=== PATIENT | female | born 1955 | race Caucasian/White ===

== ENCOUNTER 2023-12-25 17:35 | Emergency (ER) | payer MEDICARE, BC ==
[~2023-12-25] VITALS: Ht 167.6 cm; Wt 86.9 kg
--- OUTSIDE RECORDS SUMMARY | 2023-12-25 17:36 | XMS ---
PreManage Notification: DALIA ROBLES Security Virtual Office Assistant Events No recent Security Events currently on file CRITERIA MET - PDMP CARE PROVIDERS RASHEED MERLOS Internal Medicine Current PHONE: [phone] [place] has no Care Guidelines for this patient. [facility]12 MO.) [facility]: Visits indicate total known visits. ED/UCC VISIT TRACKING (12 MO.) 12/25/2023 17:35 [facility] TYPE: Emergency COMPLAINT: - RT KNEE PAIN 05/12/2023 15:17 [facility] TYPE: Emergency COMPLAINT: - object stuck in ear DIAGNOSES: - Foreign body in right ear, initial encounter INPATIENT VISIT TRACKING (12 MO.) No inpatient visits to display in this time frame [id number]
[2023-12-25] MEDS ORDERED: LORAZEPAM1 MG PO (19:21)
[2023-12-25] MEDS ORDERED: LEVOTHYROXINE112 MCG PO (19:22)
[2023-12-25] MEDS ORDERED: VENTOLIN HFA18 GM INH (19:22)
[2023-12-25] MEDS ORDERED: LATANOPROST2.5 ML (19:23)
[2023-12-25] MEDS ORDERED: DILTIAZEM 24HR120 MG PO (19:23)
[2023-12-25] MEDS ORDERED: IBUPROFEN 800 MG TAB PO ONE (20:30)
[2023-12-25 20:51] VITALS: BP 164/81
== END 2023-12-25 20:51 | disposition home or self-care (01) ==
LOC: ED 17:35
DX: S83.91XA Sprain of unspecified site of right knee, initial encounter (principal); X58.XXXA Exposure to other specified factors, initial encounter; M16.11 Unilateral primary osteoarthritis, right hip; I10 Essential (primary) hypertension; J45.909 Unspecified asthma, uncomplicated; R73.03 Prediabetes; Z79.890 Hormone replacement therapy; Z79.899 Other long term (current) drug therapy
CPT/HCPCS: 73502; 73560; A9270

== ENCOUNTER 2024-08-13 05:49 | Inpatient (IN) | payer MEDICARE, BC ==
[2024-08-13] VITALS (7 sets, daily range): BP systolic 122–146; BP diastolic 59–67
[~2024-08-13] VITALS: Ht 167.6 cm; Wt 80.8 kg
[~2024-08-13 05:49] MED LIST: DILTIAZEM 24HR120 MG PO; LATANOPROST2.5 ML OU; LEVOTHYROXINE112 MCG PO; LORAZEPAM1 MG PO; VENTOLIN HFA18 GM INH
[2024-08-13] MEDS ORDERED: ALBUTEROL/IPRATROPIUM 3 ML NEB ONE (05:54)
[2024-08-13] MEDS ORDERED: CEFTRIAXONE SODIUM 2 GM in SODIUM CHLORIDE 0.9% 100 ML IV ONE (06:15)
[2024-08-13] MEDS ORDERED: ALBUTEROL/IPRATROPIUM 3 ML NEB INH ONE (06:15)
[2024-08-13] MEDS ORDERED: CEFTRIAXONE SODIUM 2 GM VIAL ONE (06:16)
[2024-08-13 06:20] LABS: BASOPHILS 0.3 % (0-2); EOSINOPHILS 0.3 % (0-6); HEMATOCRIT 41.4 % (35.0-50.0); HEMOGLOBIN 14.5 g/dL (12.0-18.0); LYMPHOCYTES 17.1 % (24-44); MCH 32.2 (27-36); MCV 91.9 fl (81-99); MONOCYTES 5.1 % (0-12); NEUTROPHILS 77.2 % (39-80); PLATELET COUNT 152 K/uL (140-440); RDW 12.4 (10.5-15.0)
[2024-08-13] MEDS ORDERED: ACETAMINOPHEN 500 MG TAB PO ONE (06:30)
[2024-08-13 06:31] LABS: INR 0.98 (0.80-1.30); PROTIME 12.8 Sec (11.2-14.2)
[2024-08-13 06:33] LABS: PARTIAL THROMBOPLASTIN TIME 25.8 Sec (22.9-41.3)
[2024-08-13 06:36] LABS: ALBUMIN 3.7 g/dL (3.4-5.0); ALBUMIN/GLOBULIN RATIO 1.03 (1.1-2.4); ANION GAP 12.4 (7-21); BILIRUBIN, TOTAL 0.7 mg/dL (0.2-1.0); BUN/CREATININE RATIO 18.6 (6.0-28.6); CALCIUM 8.7 mg/dL (8.5-10.1); CREATININE, SERUM 0.86 mg/dL (0.55-1.02); POTASSIUM 3.4 mmol/L (3.5-5.1); PROTEIN, TOTAL 7.3 g/dL (6.4-8.2)
[2024-08-13 06:39] LABS: LACTIC ACID, BLOOD 1.1 mmol/L (0.4-2.0)
[2024-08-13] MEDS ORDERED: ACETAMINOPHEN 325 MG TAB PO PRN ×2 (07:30→11:15)
[2024-08-13] MEDS ORDERED: ondansetron HCL 4 MG/2 ML VIAL IV PRN ×2 (07:30→11:15)
[2024-08-13] MEDS ORDERED: AZITHROMYCIN 500 MG in DEXTROSE 5% 250 ML IV ONE (07:30)
[2024-08-13 08:26] LABS: BILIRUBIN, URINE NEGATIVE (negative); BLOOD/HGB, URINE TRACE-I (Negative); KETONE, URINE TRACE (Negative); LEUK ESTERASE, URINE NEGATIVE (negative); NITRITE, URINE POSITIVE (negative)
[2024-08-13 08:30] LABS: BACTERIA, URINE 2+ /hpf (negative); CASTS, URINE NONE SEEN \\lpf; COLLECTION TYPE, URINE CLEAN CATCH; CRYSTALS, URINE NONE SEEN (0-1+); EPITHELIAL CELLS, URINE SQUAMOUS 2+ /lpf (0-1+); REFLEX CULTURE, URINE No (No)
--- NOTE | 2024-08-13 10:20 | NUR ---
PT ARRIVES TO FLOOR VIA STRETCHER TRANSPORTED BY THIS RN. PT ABLE TO WALK TO BED TO TRANSFER, SP02 STABLE ON 2L - TITRATED DOWN FROM 4L FROM ED. ADMISSION ASSESSMENTS STARTED - SEE CHART.
[2024-08-13] MEDS ORDERED: ALBUTEROL SULFATE 0.083% 3 ML VIAL INH PRN (10:30)
[2024-08-13] MEDS ORDERED: POTASSIUM CHLORIDE 10 MEQ TABCR PO ONE (11:15)
[2024-08-13] MEDS ORDERED: LACTATED RINGER'S 1,000 ML IV ONE (11:15)
[2024-08-13] MEDS ORDERED: LORazepam 1 MG TAB PO PRN (11:15)
[2024-08-13] MEDS ORDERED: PHARMACY RENAL DOSE ADJUSTMENT 1 DOSE MISC PO SCH (12:00)
--- NOTE | 2024-08-13 12:08 | NUR ---
ADMIT ASSESSMENT COMPLETE - PT EXPIRATORY WHEEZE THROUGHOUT WITH FREQUENT DRY COUGH. PRN NEB TX REQUESTED FROM RT. PT REPORTS LOOSE STOOL AT HOME YESTERDAY, NONE NOTED SINCE ARIVAL. VOIDING IN BATHROOM WITHOUT DIFFICULTY-NEEDING 2L 02 WHILE AMBULATING TO MAINTAIN SPO2. IV BOLUS STARTED PER EMAR. PTS VITALS STABLE ON MONITOR. AT BEDSIDE, ALL QUESTIONS ANSWERED.
--- NOTE | 2024-08-13 13:05 | NUR ---
PT NOTED TO HAVE FEVER 102.6 - TYLENOL ADMINISTERED. NASAL SWAB OBTAINED AND SENT TO LAB. LR BOLUS COMPLETE, IV SL. 02 AT 2L VIA NC. WORK OF BREATHING IMPROVED AFTER NEB TX. PT HOPING TO GET REST AT THIS TIME. CALL LIGHT AND TABLE IN REACH.
[2024-08-13] MEDS ORDERED: PREDNISONE20 MG PO (13:15)
[2024-08-13 13:39] LABS: CORONAVIRUS COVID-19 AG NEGATIVE (NEGATIVE); INFLUENZA A AG NEGATIVE (NEGATIVE); INFLUENZA B AG NEGATIVE (NEGATIVE)
[2024-08-13] MEDS ORDERED: ARNUITY ELLIPT50 MCG INH (13:54)
[2024-08-13] MEDS ORDERED: ESTRADIOL42.5 GM PV (13:55)
[2024-08-13] MEDS ORDERED: ALBUTEROL/IPRATROPIUM 3 ML NEB INH SCH ×2 (14:00→20:00)
[2024-08-13] MEDS ORDERED: methylPREDNISolone SOD SUCC 40 MG/ML VIAL IV SCH (14:00)
--- NOTE | 2024-08-13 14:05 | NUR ---
INTO SEE PATIENT. PERSONAL HEALTH INFORMATION REVIEWED. PATIENT LIVES IN AN RV ON THE PROPERTY THEY ARE BUILDING. 4 STEPS TO GET INTO. PATIENT DENIES DIFFCULTY GETTNG INTO RV. PATIENT DRIVES AT BASELINE. NO DME. PATIENT STATES BILLS ARE TIGHT. LET HER KNOW ABOUT [email or web address] AND [employer]. SHE LIVES WITH HER CARMINE. HE WILL BE THE ONE TO PICK HER UP AT TIME OF DISCHARGE. NO CM NEEDS AT THIS TIME.
--- NOTE | 2024-08-13 14:51 | NUR ---
UR CLINICAL REVIEW: 2MN VERSALUS, MEETS INPT FOR INFLUENZA PNEUMONIA 2L/MIN OXYGEN TO MAINTAIN SATS >90%, CXR POSITIVE PNEUMONIA, IV FLUIDS, IV STEROIDS. MEDICARE INPT 08/13/24 @ 1106 ORDER MATCHES REG NO AUTH REQUIRED PER MEDICARE RULES PLAN TO DC HOME WITH WHEN MEDICALLY STABLE.
--- NOTE | 2024-08-13 15:05 | NUR ---
INCREASED O2 TO 3 LPM WHILE SLEEPING
[2024-08-13] MEDS ORDERED: BERBERINE500 MG PO (17:16)
[2024-08-13] MEDS ORDERED: CINNAMON500 MG PO (17:16)
--- NOTE | 2024-08-13 17:16 | NUR ---
MED REC COMPLETE
--- NOTE | 2024-08-13 17:16 | NUR ---
MED REC COMPLETE
--- NOTE | 2024-08-13 18:13 | NUR ---
REPORT RECEIVED FROM PAUL ARREDONDO. PATIENT TRANSPORTED FROM CCU TO MS ROOM 113. PATIENT IS ALERT AND ORIENTED X4. PATIENT IS ON 3L NC WHILE HERE, BUT IS ON ROOM AIR AT BASELINE. PATIENT LUNGS HAVE CRACKLES THROUGHOUT. PATIENT HAS A HARD NON-PRODUCTIVE COUGH. PATIENT O2 SATURATION AT 96% ON 3L. PATIENT IV FLUSHED WITH 10ML OF NS, DRESSING INTACT. PATIENT RATED PAIN 4/10 IN LOWER BACK DUE TO BED, PATIENT NOT REQUESTING ANYTHING FOR PAIN AT THIS TIME. PATIENT UP TO BATHROOM AT THIS WITH SUPERVISION. PATIENT EDUCATED TO CALL WHEN SHE IS BACK IN BED. PATIENT EXPRESSED UNDERSTANDING. NO FURTHER NEEDS AT THIS TIME.
--- NOTE | 2024-08-13 19:37 | NUR ---
REPORT RECEIVED FROM DAYSDEFT RN. PATIENT SITTING UPRIGHT IN BED TALKING TO SIGNIFICANT OTHER. PATIENT DENIES ANY NEEDS, CALL LIGHT IN REACH.
[2024-08-13] MEDS ORDERED: BUDESONIDE 0.5 MG/2 ML VIAL INH SCH (20:00)
--- NOTE | 2024-08-13 20:25 | NUR ---
INDUSTRIAL REHABILITATION CONSULTANT OBTAINED VITALS AND I&O. ICE WATER REFILLED. PT STATES NO FURTHER NEEDS AT THIS TIME. CALL LIGHT WITHIN REACH.
--- NOTE | 2024-08-13 20:43 | NUR ---
RT ADDED HUMIDIFICATION TO DALIA'S NC. SHE DOES NOT USE HOME OXYGEN. DALIA HAS A NEW ASTHMA MEDICATION TO START AT HOME CALLED PINKY FERREIRA. DALIA HAS A CONGESTED DRY HACKING COUGH CURRENTLY.
[2024-08-13] MEDS ORDERED: MELATONIN 3 MG TAB PO PRN (21:00)
--- NOTE | 2024-08-13 21:10 | NUR ---
PATIENT SITTING UPRIGHT IN BED, ASSESSMENT COMPLETE. DENIES ANY NEEDS, CALL LIGHT IN REACH.
[2024-08-13] MEDS ORDERED: INHALER, ASSIST DEVICES 1 EACH SPACER MISC ONE (21:45)
--- NOTE | 2024-08-13 22:20 | NUR ---
SCHEDULED MEDICATIONS ADMINISTERED, PATIENT RESTING. WOKE TO RN ENTERING ROOM, DENIES FURTHER NEEDS. REQUESTS TO CONTINUE RESTING. CALL LIGHT IN REACH.
--- NOTE | 2024-08-13 23:31 | NUR ---
IN ROOM TO ANSWER CALL LIGHT, PATIENT REQUESTING TO USE RESTROOM. AMBULATED TO RESTROOM WITH MINIAL SBA, BACK TO BED WITHOUT DIFFICULTY. PATIENT DENIES OTHER NEEDS. CALL LIGHT IN REACH.
[2024-08-14] VITALS (11 sets, daily range): BP systolic 110–121; BP diastolic 47–67
--- NOTE | 2024-08-14 01:27 | NUR ---
PATIENT ASSISTED UP TO RESTROOM WITH MINIMAL SBA, BACK TO BED WITHOUT DIFFICULTY. FRESH WATER PROVIDED. VS OBTAINED AND RECORDED. PATIENT PLANS TO REST AGAIN. DENIES OTHER NEEDS, CALL LIGHT IN REACH.
[2024-08-14 05:12] LABS: BASOPHILS 0.2 % (0-2); EOSINOPHILS 0.4 % (0-6); HEMATOCRIT 37.5 % (35.0-50.0); HEMOGLOBIN 13.2 g/dL (12.0-18.0); LYMPHOCYTES 17.1 % (24-44); MCH 32.1 (27-36); MCHC 35.1 g/dl (30-36); MCV 91.6 fl (81-99); MONOCYTES 7.7 % (0-12); NEUTROPHILS 74.6 % (39-80); PLATELET COUNT 135 K/uL (140-440); RBC 4.09 M/ul (4.3-5.7); RDW 12.5 (10.5-15.0)
[2024-08-14 05:21] LABS: BUN/CREATININE RATIO 14.49 (6.0-28.6); CALCIUM 8.6 mg/dL (8.5-10.1); CREATININE, SERUM 0.69 mg/dL (0.55-1.02)
--- NOTE | 2024-08-14 05:22 | NUR ---
MASTER CRAFTSMAN OBTAINED VITALS AND I&O. PT UP TO BAHTROOM AND BACK IN BED. PT STATES NO FURTHER NEEDS AT THIS TIME. CALL LIGHT WITHIN REACH AND RN IN ROOM.
--- NOTE | 2024-08-14 05:28 | NUR ---
ASSISTED BACK TO BED FROM BATHROOM. FRESH WATER PROVIDED, RESPIRATORY ASSESSMENT COMPLETE. PATIENT DENIES OTHER NEEDS. CALL LIGHT IN REACH.
--- NOTE | 2024-08-14 06:10 | NUR ---
SCHEDULED MEDICATION ADMINISTERED. PATIENT WOKE TO RN ENTERING ROOM, RETURNED TO SLEEP FOLLOWING MEDICATION ADMINISTRATION. RESP. EVEN AND UNLABORED. CALL LIGHT IN REACH.
--- NOTE | 2024-08-14 07:01 | NUR ---
REPORT RECEIVED FROM PAUL VILLA. PATIENT RESTING WITH EYES CLOSED. EVEN AND UNLABORED RESPIRATIONS NOTED. CALL LIGHT AND PERSONAL BELONGINGS WITHIN REACH.
--- NOTE | 2024-08-14 07:50 | NUR ---
RA TRIAL 90% WITH SOB, REPLACED O2 TO 2 LPM.
[2024-08-14] MEDS ORDERED: CEFTRIAXONE SODIUM 1 GM VIAL IV ONE (08:07)
--- NOTE | 2024-08-14 08:08 | NUR ---
RT in with patient doing a treatment. Call light and personal items within reach. No cares were requested.
--- NOTE | 2024-08-14 08:30 | NUR ---
PATIENT ASSESSMENT COMPLETED. PATIENT IS ALERT AND ORIENTED X4. PATIENT IS INDEPENDENT/ 1 PERSON ASSISST PRN FOR TUBES AND WIRES. PATIENT IS 91% ON 3L NC, LUNG SOUNDS ARE COURSE/MOIST THROUGHOUT. PATIENT IS ON CPOX. PATIENT HEART TONES ARE NORMAL. RADIAL AND PEDAL PULSES ARE STRONG BILATERALLY. NO EDEMA NOTED. PATIENT WITH NO COMPLAINTS OF PAIN AT THIS TIME. PATIENT HAS HARSH, NON PRODUCTIVE COUGH. PATIENT IS DIABETIC TYPE 2, BUT CONTROLS IT WITH DIET. PATIENT IS ON REGULAR DIET, BUT HAS NOT EATEN MUCH DUE TO LOSS OF APPETITE. CAP REFILL IS <3 SECONDS. PATIENT REPORTS NUMBNESS/TINGLING IN RIGHT LOWER EXTREMETY. BOWEL TONES ARE ACTIVE IN ALL 4 QUADRANTS. PATIENT REPORTS HAVING LAST BM YESTERDAY. IV FLUSHED WITH 10ML OF NS, DRESSING INTACT. SKIN INTACT. PATIENT WITH NO FURTHER NEEDS AT THIS TIME. CALL LIGHT AND PERSONAL BELONGINGS WITHIN REACH.
--- NOTE | 2024-08-14 08:33 | NUR ---
PATIENT MEDICATED PER EMAR. PATIENT SITTING UP IN BED EATING BREAKFAST. PATIENT DENIES ANY FURTHER NEEDS AT THIS TIME. CALL LIGHT AND PERSONAL BELONGINGS WITHIN REACH.
[2024-08-14] MEDS ORDERED: CEFTRIAXONE SODIUM 1 GM in SODIUM CHLORIDE 0.9% 100 ML IV SCH (09:00)
[2024-08-14] MEDS ORDERED: AZITHROMYCIN 250 MG TAB PO SCH (09:00)
[2024-08-14] MEDS ORDERED: LEVOTHYROXINE SODIUM 112 MCG TAB PO SCH (09:00)
[2024-08-14] MEDS ORDERED: ENOXAPARIN SODIUM 40 MG/0.4 ML SYR SUB-Q SCH (09:00)
[2024-08-14] MEDS ORDERED: dilTIAZem HCL 120 MG CAPCR PO SCH (09:00)
--- NOTE | 2024-08-14 09:33 | NUR ---
PATIENT SITTING UP IN BED TALKING ON THE PHONE. PATIENT DENIES ANY NEEDS AT THIS TIME. CALL LIGHT AND PERSONAL BELONINGS WITHIN REACH.
--- NOTE | 2024-08-14 10:34 | NUR ---
PATIENT SITTING UP IN BED EATING MCDONALDS AND DRINKING COFFEE WITH AT BEDSIDE. PATIENT REQUESTING TO USE BATHROOM. PATIENT AMBULATED TO BATHROOM AND WILL CALL IF SHE NEEDS ASSISSTANCE. PATIENT ON 2L O2 WITH SATS OF 91%. PATIENT DENIES ANY FUTHER NEEDS AT THIS TIME. CALL LIGHT AND PERSONAL BELONGINGS WITHIN REACH.
--- NOTE | 2024-08-14 11:19 | NUR ---
PATIENT RESTING IN BED WITH AT BEDSIDE. PATIENT WITH NO COMPLAINTS OF PAIN AT THIS TIME. PATIENT DENIES ANY FURTHER NEEDS AT THIS TIME. CALL LIGHT AND PERSONAL BELONGINGS WITHIN REACH.
[2024-08-14] MEDS ORDERED: ALBUTEROL/IPRATROPIUM 3 ML NEB INH SCH (12:00)
--- NOTE | 2024-08-14 12:12 | NUR ---
PATIENT RESTING IN BED WAITING FOR LUNCH. FRESH ICE WATER PROVIDED. PATIENT WITH NO COMPLAINTS OF PAIN AT THIS TIME. PATIENT DENIES ANY FURTHER NEEDS AT THIS TIME. CALL LIGHT AND PERSONAL BELONGINGS WITHIN REACH.
--- NOTE | 2024-08-14 13:08 | NUR ---
PATIENT RESTING IN BED. VITALS AND INTAKE AND OUTPUT DOCUMENTED IN CHART. PATIENT WITH NO COMPLAINTS OF PAIN AT THIS TIME. IV PUMP CLEARED. CRANBERRY JUICE PROVIDED. OXYGEN TITRATED DOWN TO 1L AT THIS TIME, PATIENT DENIES SOB AND OXYGEN SATURATION IS AT 94%. FIREBOAT OPERATOR IN ROOM SETTING PATIENT UP FOR SHOWER. CALL LIGHT AND PERSONAL BELONGINGS WITHIN REACH.
--- NOTE | 2024-08-14 14:28 | NUR ---
Patient took a shower with set up assistance. Bed linens changed, clean gown and socks provided.
--- NOTE | 2024-08-14 14:44 | NUR ---
PATIENT RESTING IN BED ON HER PHONE. AT 1425 PATIENT WAS 96% ON 1L NC. THIS RN REMOVED PATIENT OXYGEN TO ASSESS PATIENT OXYGEN LEVEL DUE TO BASELINE FOR PATIENT BEING NO OXYGEN. AT THIS TIME, PATIENT OXYGEN LEVEL AT 93% ON ROOM AIR. PATIENT DENIES FEELING SOB OR ANY PAIN. PATIENT STILL HAS PRODUCTIVE COUGH. PATIENT LUNGS ARE WITH WHEEZES THROUGHOUT. FRESH WATER PROVIDED. PATIENT DENIES ANY FURTHER NEEDS AT THIS TIME. CALL LIGHT AND PERSONAL BELONGINGS WITHIN REACH.
--- NOTE | 2024-08-14 15:05 | NUR ---
PATIENT DESATING TO 88-90 WHILE LAYING DOWN. THIS RN TURNED OXYGEN BACK TO 0.5LPM AND PATIENT OXYGEN LEVEL AT 93%. PATIENT DENIES ANY FURTHER NEEDS AT THIS TIME AND STATED SHE WILL CALL IF SHE HAS ANY SOB OR FEELING THAT SHE'S NOT GETTING ENOUGH OXYGEN. PATIENT ON CPOX AT THIS TIME. CALL LIGHT AND PERSONAL BELONGINGS WITHIN REACH.
--- NOTE | 2024-08-14 15:29 | NUR ---
PATIENT UP TO BATHROOM WITHOUT OXYGEN. PATIENT AT 87% ON ROOM AIR WITH AFTER AMBULATING TO AND FROM BATHROOM. PATIENT PLACED BACK ON 1L BY THIS RN AT THIS TIME. PATIENT BACK UP TO 91% ON 1L. LOTION AND FRESH ICE WATER PROVIDED TO PATIENT. PATIENT DENIES ANY FURTHER NEEDS AT THIS TIME. CALL LIGHT AND PERSONAL BELONGINGS WITHIN REACH.
--- NOTE | 2024-08-14 16:10 | NUR ---
RT IN WITH PATIENT AT THIS TIME
--- NOTE | 2024-08-14 17:19 | NUR ---
PATIENT UP TO BATHROOM WHEN THIS RN ENTERED ROOM. FRESH ICE WATER AND DIET CRANBERRY JUICE PROVIDED. PATIENT BACK IN BED AT THIS TIME. CPOX CONNECTED. PATIENT DENIES ANY FURTHER NEEDS. CALL LIGHT AND PERSONAL BELONGINGS WITHIN REACH.
--- NOTE | 2024-08-14 18:05 | NUR ---
PATIENT IS LYING IN BED WITH THE LIGHTS OFF AND ARE ON HER PHONE. PATIENT WITH NC IN PLACE AND THE CPOX AT BEDSIDE. PATIENT STATED NO NEEDS AT THIS TIME. CALL LIGHT AND PERSONAL BELONGINGS ARE WITHIN REACH.
--- NOTE | 2024-08-14 19:08 | NUR ---
PATIENT REPORTING SEVERE PAIN IN UPPER ABDOMINAL, CHEST, AND NECK FROM COUGHING. PATIENT ALSO REPORTING ANIETY. PRN DOSE OF ATIVAN AND TYLENOL GIVEN. PATIENT REQUESTING SOMETHING MORE FOR PAIN. DR MARTINEZ NOTIFIED. NEW ORDER FOR MOTRIN FROM . NO FURTHER ORDERS AT THIS TIME.
[2024-08-14] MEDS ORDERED: IBUPROFEN 600 MG TAB PO PRN (19:15)
--- NOTE | 2024-08-14 19:15 | NUR ---
REPORT RECEIVED FROM AKASH. PT IN ROOM, IN ROOM. NO NEEDS VOICED.
--- NOTE | 2024-08-14 20:39 | NUR ---
DALIA NEEDS A NEW NEBULIZER ORDERED UPON DISCHARGE. DALIA IS SITTING UP IN BED ON A 2L NC TALKING TO HER
[2024-08-14] MEDS ORDERED: methylPREDNISolone SOD SUCC 40 MG/ML VIAL IV SCH (21:00)
--- NOTE | 2024-08-14 22:00 | NUR ---
ASSESSMENT COMPLETED. FRESH ICE WATER GIVEN. CONTINUES ON 2LNC, CPOX IN PLACE, [id number] 90'S. COUGHING FREQUENTLY WHILE RN PRESENT. PT STATES THAT THE COUGHING HAS IMPROVED SINCE ADMISSION. DENIES PAIN AT THIS TIME. IN ROOM. NO OTHER NEEDS AT THIS TIME.
--- NOTE | 2024-08-14 23:47 | NUR ---
ROUNDED ON PT. LAYING ON RIGHT SIDE, WATCHING HER PHONE.
[2024-08-15] VITALS (8 sets, daily range): BP systolic 129–168; BP diastolic 46–73
--- NOTE | 2024-08-15 00:37 | NUR ---
PT REQUESTED AND RECEIVED PAIN MEDICATION FOR LUQ, JUST BELOW RIB CAGE. STATES PAIN IS FROM COUGHING. EXTRA PILLOW GIVEN FOR PT TO HOLD WHEN SHE COUGHS. FRESH ICE WATER GIVEN. VOIDING, WITH NO COMPLAINTS. CPOX IN PLACE, 2LNC O2 WELL.
--- NOTE | 2024-08-15 03:05 | NUR ---
rounded on pt. With door opening, pt woke. Stated she has been sleeping.
--- NOTE | 2024-08-15 05:14 | NUR ---
ASSESSMENT COMPLETE. LUNGS COARSE, RALES THROUGHOUT. SHALLOW BREATHING, WEAK COUGH CONTINUES. ENCOURAGED TO COUGH DEEP, INCREASES COUGH SL. THEN SUPRESSES. COMPLAINS OF UPPER ABD PAIN, UNABLE TO GIVE NUMBER, SHE RUBS FROM LEFT TO RIGHT ACROSS THE TOP. ACTIVE BOWEL SOUNDS. PT AWARE OF SURROUNDINGS, SELF, UNABLE TO STATE WHY SHE IS HERE. DATE, TIME MONTH UNKNOWN BY PT. FOLLOWS COMMANDS WELL. SKIN WARM AND SL BLOCHY ELBOW REGIONS ELOTN ARMS. IV PATENT, FLUSHES, INFUSING NS PER ORDER. TRACE EDEMA IN FEET. TYLENOL GIVEN FOR PAIN WELL FEVER; MUCINEX GIVEN WELL. REQUESTED RT TO GIVE PRN BREATHING TX. PLACED ON 2L DUE TO DROPPING O2 INTO THE LOW 80'S WHILE TALKING, AND WHEN USING THE CORNET. DENIES NEED FOR TOILETING. DID DRINK SEVERAL SIPS WATER. TAKES MEDICATIONS WELL. REPOSITIONED WITH ASSIST FLAT FOLDER.
[2024-08-15 05:38] LABS: BASOPHILS 0.2 % (0-2); HEMATOCRIT 34.8 % (35.0-50.0); HEMOGLOBIN 12.3 g/dL (12.0-18.0); LYMPHOCYTES 6.8 % (24-44); MCH 32.4 (27-36); MCHC 35.4 g/dl (30-36); MCV 91.4 fl (81-99); MONOCYTES 12.6 % (0-12); NEUTROPHILS 80.4 % (39-80); PLATELET COUNT 163 K/uL (140-440); RBC 3.81 M/ul (4.3-5.7); RDW 12.3 (10.5-15.0)
[2024-08-15 05:42] LABS: ANION GAP 11.9 (7-21); BUN/CREATININE RATIO 14.08 (6.0-28.6); CALCIUM 8.7 mg/dL (8.5-10.1); CREATININE, SERUM 0.71 mg/dL (0.55-1.02); MAGNESIUM 1.8 mg/dL (1.8-2.4); POTASSIUM 3.9 mmol/L (3.5-5.1)
--- NOTE | 2024-08-15 06:21 | NUR ---
IN PT ROOM NEAR 0606. ASLEEP, RESP EVEN AND UNLABORED. DID NOT HEAR RN INTO ROOM. FRESH ICE WATER GIVEN. LUNG SOUNDS RECORDED, PT LAYING ON RIGHT SIDE, AND RIGHT SIDE LUNGS WIHT WHEEZES, LEFT CLEAR, DIM. OCCASSIONAL GENTLY COUGH. IV FLUSHES WELL. CPOX READINGS DOCUMENTED.
--- NOTE | 2024-08-15 07:01 | NUR ---
REPORT RECEIVED FROM PAUL NICK. PATIENT RESTING WITH EYES CLOSED. EVEN AND UNLABORED RESPIRATIONS NOTED. CALL LIGHT AND PERSONAL BELONGINGS WITHIN REACH.
--- NOTE | 2024-08-15 08:23 | NUR ---
RT AT BEDSIDE GIVING PATIENT BREATHING TREATMENT. CALL LIGHT AND PERSONAL BELOONGINGS WITHIN REACH.
[2024-08-15] MEDS ORDERED: CEFTRIAXONE SODIUM 1 GM VIAL IV ONE (08:55)
--- NOTE | 2024-08-15 08:55 | NUR ---
PATIENT IS LYING IN BED WITH HOB ELEVATED. PATIENT IS ON 2 L NC WITH THE CPOX AT BEDSIDE. PATIENT WITH EYES CLOSED AND RESPIRATIONS ARE EVEN AND UNLABORED. CALL LIGHT AND PERSONAL BELONGINGS ARE WITHIN REACH.
--- NOTE | 2024-08-15 09:19 | NUR ---
PATIENT ASSESSMENT COMPLETED. PATIENT IS ALERT AND ORIENTED X4 AND INDEPENDENT IN THE ROOM. PATIENT HAS NORMAL HEART TONES UPON AUSCULTATION. RADIAL AND PEDAL PULSES ARE STRONG BILATERALLY. PATIENT REPORTS NUMBNESS AND TINGLING IN RLE, BUT DENIES ANY NUMBNESS OR TINGLING ELSEWHERE. CAP REFILLS ARE <3 SECONDS IN UPPER AND LOWER EXTREMETIES. PATIENT WITH NO EDEMA. IV FLUSHED WITH 10ML OF NS, DRESSING INTACT. PATIENT BOWEL TONES ARE ACTIVE THROUGHOUT AND PATIENT DENIES ANY URINARY SYMPTOMS. PATIENT ON REGULAR DIET WITH IMPROVED APPETITE. PATIENT ON 2L NC AT 94%. LUNG SOUNDS ARE COURSE IN BILATERAL UPPER LOBES AND WITH CRACKLES IN BILATERAL LOWER BASES. PATIENT WITH NO SKIN ISSUES. PATIENT WITH NO COMPLAINTS OF PAIN AT THIS TIME. PATIENT DENIES ANY FURTHER NEEDS. CALL LIGHT AND PERSONAL BELONGINGS WITHIN REACH.
--- NOTE | 2024-08-15 10:24 | NUR ---
PATIENT RESTING IN BED ON HER PHONE. IV ABX COMPLETED. IV FLUSHED WITH 10ML OF NS, DRESSING INTACT. PATIENT DENIES ANY FURTHER NEEDS AT THIS TIME. CALL LIGHT AND PERSONAL BELONGINGS WITHIN REACH.
--- NOTE | 2024-08-15 11:28 | NUR ---
PATIENT RESTING IN BED ON HER PHONE. DENIES ANY NEEDS AT THIS TIME. CALL LIGHT AND PERSONAL BELONGINGS WITHIN REACH.
--- NOTE | 2024-08-15 12:30 | NUR ---
PATIENT IS IN BED WITH HOB ELEVATED. PATIENT IS ON 2 L NC WITH THE CPOX AT BEDSIDE. LUNCH TRAY TAKEN IN AT THIS TIME. FRESH CUP OF ICE WATER AND DIET CRANBERRY JUICE PROVIDED. PATIENT WITH HER SITTING AT BEDSIDE. PATIENT STATED NO FURTHER NEEDS AT THIS TIME. CALL LIGHT AND PERSONAL BELONGINGS ARE WITHIN REACH.
--- NOTE | 2024-08-15 13:06 | NUR ---
PATIENT RESTING IN BED VISITING WITH . DIET CRANBERRY JUICE PROVIDED TO PATIENT. PATIENT WITH NO FURTHER NEEDS AT THIS TIME. CALL LIGHT AND PERSONAL BELONGINGS WITHIN REACH.
--- NOTE | 2024-08-15 14:28 | NUR ---
PATIENT SITTING UP IN BED. PATIENT AT 94% ON 2L NASAL CANNULA. LUNG SOUNDS ARE CLEAR IN THE RUL, COURSE IN POLLO, WITH CRACKLES IN THE BASES. SHOWER SET UP FOR PATIENT. IV FLUSHED WITH 10ML OF NS, DRESSING INTACT AND COVERED FOR SHOWER. PATIENT DENIES ANY FURTHER NEEDS AT THIS TIME. CALL LIGHT AND PERSONAL BELONGINGS WITHIN REACH.
--- NOTE | 2024-08-15 15:43 | NUR ---
PATIENT IS LYING ON HER RIGHT SIDE AND ON HER PHONE. PATIENT IS 2 L NC WITH THE CPOX AT BEDSIDE. PATIENT STATED NO NEEDS AT THIS TIME. CALL LIGHT AND PERSONAL BELONGINGS ARE WITHIN REACH.
--- NOTE | 2024-08-15 16:32 | NUR ---
PATIENT SITTING UP IN BED DOING BREATHING TREATMENT. PATIENT STATED SHE WOULD LIKE TO TAKE A WALK AFTER BREATHING TREATMENT IS COMPLETE. FRESH ICE WATER PROVIDED. PATIENT IS 94% ON 2L NASAL CANNULA. THIS RN IN ROOM DURING BREATHING TREATMENT.
--- NOTE | 2024-08-15 16:50 | NUR ---
PATIENT BACK IN ROOM AFTER A WALK. PATIENT AMBULATED AROUND THE FLOOR LOOP X2. PULSE OXIMETER READING 85% ON 2L. PATIENT DENIES ANY DIZZINESS OR WEAKNESS WITH AMBULATION. PATIENT BACK UP TO 90% ON 4L.
--- NOTE | 2024-08-15 17:00 | NUR ---
PATIENT BACK IN BED AT THIS TIME. TURNED OXYGEN DOWN TO 2L, PATIENT AT 88%. TURNED OXYGEN BACK UP TO 3L UNTIL PATIENT RECOVERED.
--- NOTE | 2024-08-15 17:23 | NUR ---
MD NOTIFIED OF PATIENT TAKING HER PERSONAL DOSE OF 120 MG OF DILTIAZEM. MD MENTIONED IT MUST HAVE FALLEN OFF THE ORDER SET. WITH NO NEW ORDERS AT THIS TIME. CALL ENDED.
--- NOTE | 2024-08-15 17:25 | NUR ---
PATIENT RESTING IN BED EATING DINNER. OXYGEN LEVEL BACK UP TO 94% ON 3L. TURNED OXYGEN BACK DOWN TO 2L, PATIENT SATURATION AT 92%. PATIENT DENIES ANY FURTHER NEEDS AT THIS TIME. CALL LIGHT AND PERSONAL BELONINGS WITHIN REACH.
--- NOTE | 2024-08-15 18:00 | NUR ---
PATIENT RESTING IN BED TALKING ON THE PHONE. FRESH ICE WATER GIVEN. PATIENT DENIES ANY FURTHER NEEDS AT THIS TIME. CALL LIGHT AND PERSONAL BELONINGS WITHIN REACH.
--- NOTE | 2024-08-15 19:30 | NUR ---
REPORT RECEIVED FROM DAY SHIFT RN. PT LYING IN BED ALERT AND ORIENTED. PRN FOR ABD PAIN/SORENESS AND ANXIETY ADMIN PER EMAR. NO FURTHER NEEDS. WHITE BOARD UPDATED. CALL LIGHT IN REACH.
--- NOTE | 2024-08-15 19:39 | NUR ---
DALIA IS SITTING UPRIGHT IN BED COUGHING ALMOST CONSTANTLY. RT TURNED HER FIO2 TO 3L BECAUSE SHE WAS HOVERING AROUND 88% ON HER SPO2. CORNET LEVEL 5 DONE W/O DIFFICULTY.
--- NOTE | 2024-08-15 19:56 | NUR ---
PT REQUESTING PRN FOR COUGH. MD NOTIFIED. NEW ORDERS RECEIVED.
[2024-08-15] MEDS ORDERED: BENZONATATE 100 MG CAP PO PRN (20:00)
[2024-08-15] MEDS ORDERED: guaiFENesin 600 MG TABCR PO PRN (20:00)
--- NOTE | 2024-08-15 20:58 | NUR ---
EVENING ASSESSMENT COMPLETE. SCHEDULED MEDS ADMIN PER EMAR. PRN ADMIN FOR COUGH. NO C/O PAIN OR NAUSEA. 3L/NC IN PLACE. SpO2 LOW 90'S. SCATTERED WHEEZE AUSCULTATED THROUGHOUT. NO C/O SOB AT THIS TIME. VS AND I&O OBTAINED. PT DENIES QUESTIONS OR CONCERNS. CALL LIGHT IN REACH.
--- NOTE | 2024-08-15 23:03 | NUR ---
PT RESTING IN BED WITH EYES CLOSED. RESPIRATIONS EVEN. CALL LIGHT IN REACH.
[2024-08-16] VITALS (10 sets, daily range): BP systolic 126–145; BP diastolic 60–69
--- NOTE | 2024-08-16 00:50 | NUR ---
RT INCREASED FIO2 TO 3L BECAUSE DALIA WAS HOVERING AT 87% SPO2 ON 2L NC.
--- NOTE | 2024-08-16 02:25 | NUR ---
CPOX ALARMING. PT HAD REMOVED OXYGEN. SpO2 83% ON RA. OXYGEN REPLACED AT 3L/NC. PT RECOVERS QUICKLY TO >90%.
--- NOTE | 2024-08-16 03:40 | NUR ---
PT RESTING IN BED WITH EYES CLOSED. RESPIRATIONS EVEN. CALL LIGHT IN REACH.
--- NOTE | 2024-08-16 05:38 | NUR ---
LAB IN FOR MORNING DRAW. VS AND I&O OBTAINED. PT REPORTS SLIGHT SOB. SpO2 LOW 90'S WITH 3L/NC. VS AND I&O OBTAINED. ASSESSMENT COMPLETE. PT DENIES PAIN. NO NEEDS AT THIS TIME. CALL LIGHT IN REACH.
[2024-08-16 05:59] LABS: BASOPHILS 0.1 % (0-2); HEMATOCRIT 34.6 % (35.0-50.0); HEMOGLOBIN 12.2 g/dL (12.0-18.0); LYMPHOCYTES 7.1 % (24-44); MCH 32.2 (27-36); MCHC 35.2 g/dl (30-36); MCV 91.3 fl (81-99); NEUTROPHILS 79.8 % (39-80); PLATELET COUNT 197 K/uL (140-440); RBC 3.79 M/ul (4.3-5.7); RDW 12.7 (10.5-15.0)
[2024-08-16 06:14] LABS: ANION GAP 10.9 (7-21); BUN/CREATININE RATIO 15.87 (6.0-28.6); CALCIUM 8.3 mg/dL (8.5-10.1); CREATININE, SERUM 0.63 mg/dL (0.55-1.02); POTASSIUM 3.9 mmol/L (3.5-5.1)
--- NOTE | 2024-08-16 07:45 | NUR ---
PT AWAKE AND INTERACTIVE AT TIME OF SHIFT REPORT. FRESH H20 TO BEDSIDE DENIES OTHER NEEDS. SATS 92% ON 3 L02. PT HAS A HARSH COUGH STATES IT HAS BEEN PRODUCTIVE WITH THISCK YELLOW SPUTUM. CALL LIGHT IN REACH.
[2024-08-16] MEDS ORDERED: CEFTRIAXONE SODIUM 1 GM VIAL IV ONE (08:27)
[2024-08-16] MEDS ORDERED: SENNOSIDES/DOCUSATE 1 EA TAB PO SCH (09:00)
[2024-08-16] MEDS ORDERED: dilTIAZem HCL 120 MG CAPCR PO SCH (09:00)
[2024-08-16] MEDS ORDERED: POLYETHYLENE GLYCOL 3350 1 PACKET PO SCH (09:00)
--- NOTE | 2024-08-16 09:06 | NUR ---
PT UP TO TOILET INDEPENDENTLY RETURNS TO REST IN BED. TOELRATES MOST OF MORNING MEAL. AGREES SHE IS FULL AND COMFORTABLE
--- NOTE | 2024-08-16 09:33 | NUR ---
PT USING TRUMPET EFFECTIVELY
--- NOTE | 2024-08-16 10:49 | NUR ---
PT RESTING EYES CLOSED, IN EARLIER
--- NOTE | 2024-08-16 12:47 | NUR ---
PT JUST FINISHES BREATHING TREATMENT. SITTING UP IN BED WITH NOON MEAL AGREES SHE HAS EVRYTHING SHE NEEDS AFTER FRESH H20 PROVIDED
--- NOTE | 2024-08-16 16:25 | NUR ---
AFTER LUNCH VITALS WERE DONE. GOT PATIENT NEW ICE WATER AND DIET RADHA TERRANCE.
--- NOTE | 2024-08-16 18:19 | NUR ---
PT EATS EVENING MEAL THEN ROLLS OVER TO SLEEP. MAINTAINING SATS LOW 90'S ON 2 L02 NC. DENIES SOB WITH ACTIVITY.
--- NOTE | 2024-08-16 19:27 | NUR ---
REPORT RECEIVED FROM DAY SHIFT RN. PT LYING IN BED RESTING WITH EYES CLOSED. RESPIRATIONS EVEN. CALL LIGHT IN REACH.
--- NOTE | 2024-08-16 22:26 | NUR ---
PT AMB X 2 LAPS AROUND NURSING UNIT WITH . BACK TO BED, JOHN WELL. SpO2 90% WITH 3L/NC AFTER RETURNING TO ROOM. OXYGEN BACK TO 2L/NC AT REST. SpO2 LOW 90'S. PT DENIES SOB AT THIS TIME. EVENING ASSESSMENT COMPLETE. SCHEDULED MEDS ADMIN PER EMAR. PRN FOR COUGH AND ANXIETY ADMIN PER REQUEST. PT DENIES QUESTIONS OR CONCERNS. CALL LIGHT IN REACH.
[2024-08-17] VITALS (9 sets, daily range): BP systolic 135–167; BP diastolic 55–66
--- NOTE | 2024-08-17 00:09 | NUR ---
PT RESTING IN BED WITH EYES CLOSED. RESPIRATIONS EVEN. SpO2 93% ON 2L/NC. HR 60'S.
--- NOTE | 2024-08-17 01:08 | NUR ---
CPOX ALARMING. PT REMOVED OXYGEN WHILE ASLEEP. SpO2 82% ON RA. OXYGEN REPLACED. SpO2 BACK TO LOW 90'S. PT DENIES NEEDS.
--- NOTE | 2024-08-17 02:27 | NUR ---
PT RESTING IN BED ON RIGHT SIDE. EYES CLOSED. RESPIRATIONS EVEN. SpO2 LOW 90'S WITH 2L/NC IN PLACE. HR 60'S.
--- NOTE | 2024-08-17 04:06 | NUR ---
PT RESTING IN BED WITH EYES CLOSED. RESPIRATIONS EVEN. CALL LIGHT IN REACH.
--- NOTE | 2024-08-17 05:46 | NUR ---
PT AWAKE IN BED. VS AND I&O OBTAINED. ASSESSMENT COMPLETE. PT REPORTS SLIGHT SOB. RT IN FOR BRETHING TX. PT DENIES FURTHER NEEDS. CALL LIGHT IN REACH.
[2024-08-17 06:22] LABS: BASOPHILS 0.1 % (0-2); HEMATOCRIT 35.4 % (35.0-50.0); HEMOGLOBIN 12.3 g/dL (12.0-18.0); LYMPHOCYTES 8.2 % (24-44); MCH 32.1 (27-36); MCHC 34.8 g/dl (30-36); MCV 92.1 fl (81-99); MONOCYTES 5.8 % (0-12); NEUTROPHILS 85.9 % (39-80); PLATELET COUNT 225 K/uL (140-440); RBC 3.85 M/ul (4.3-5.7); RDW 12.5 (10.5-15.0)
[2024-08-17 06:23] LABS: ANION GAP 9.1 (7-21); BUN/CREATININE RATIO 18.46 (6.0-28.6); CALCIUM 8.6 mg/dL (8.5-10.1); CREATININE, SERUM 0.65 mg/dL (0.55-1.02); MAGNESIUM 2.2 mg/dL (1.8-2.4); POTASSIUM 4.1 mmol/L (3.5-5.1)
--- NOTE | 2024-08-17 07:20 | NUR ---
PT RESTING EYES CLOSED AT TIME OF SHIFT REPORT, LEFT UNDITURBED. 02 IS ON SATS LOW 90'S. CALL LIGHT IN REACH
[2024-08-17] MEDS ORDERED: CEFTRIAXONE SODIUM 1 GM VIAL IV ONE (08:33)
--- NOTE | 2024-08-17 08:58 | NUR ---
PT EATS SMALL PORTION OF MORNING MEAL DENIES NEED OF OTHER ITEMS. BREATHING EVEN AND UNLABORED STATES SHE FEELS A LITTTLE BETTER THAN YESTERDAY.
--- NOTE | 2024-08-17 09:58 | NUR ---
PT USING TRUMPET EFFECTIVELY CONTINUES DRY HARSH COUGH STATES SHE IS PRODUCING SMALL AMOUNTS OF YELLOW SPUTUM, NONE WITNESSED. PRESENT IN THE ROOM
--- NOTE | 2024-08-17 10:37 | NUR ---
SPOKE WITH PATIENT REGARDING DC PLAN. PLANS TO RETURN HOME WITH WHEN MEDICALLY CLEARED. STATES SHE DOES NOT HAVE A NEBULIZER. DR. MARTINEZ INFORMED OF PATIENT NEED FOR NEBULIZER AND MEDS. PATIENT CHOICES PROVIDED, REQUESTS ORDERS BE SENT TO [facility]. STATES HER CAN PICK THEM UP TOMORROW.
--- NOTE | 2024-08-17 10:39 | NUR ---
PT IN TO SEE PT UPDATE PROVIDED PER PT REQUEST. ALL QUESTIONS ANSWERED
--- NOTE | 2024-08-17 11:09 | NUR ---
PT UP TO THE SHOWER.
--- NOTE | 2024-08-17 11:17 | NUR ---
PT IS UP IN THE CHAIR CALL LIGHT IN HAND. DENIES WANT OF TV OR SOMETHING TO COLOR WITH OR READ.
--- NOTE | 2024-08-17 11:41 | NUR ---
PT DESATS WITH SHOWER ACTIVITY 02 HAD TO BE BUMPED UP. BACK TO 2 LPM AFTER RETURNING TO BED. SATS 93% AT THIS TIME. PT AGREES SHOWER MADE HER FEEL BETTER, DENIES FURTHER NEEDS AT THIS TIME
--- NOTE | 2024-08-17 12:53 | NUR ---
PT AMBULATING THE NELSON WITH PORTABLE 02 TANK AND .
--- NOTE | 2024-08-17 13:08 | NUR ---
PT BACK FROM AMBULATING THE NELSON SATS DIP TO 88% SHE RETURNS TO THE BED, RECOVERS QUICKLY TO LOW 90'S ON 2 L.
--- NOTE | 2024-08-17 14:13 | NUR ---
PT UP IN THE ROOM INDEPENDENTLY TOILETS AND DOES FURTHER SELF CARE. WELL TOLERATED. DENIES NEEDS OF ANYTHING
--- NOTE | 2024-08-17 17:21 | NUR ---
PT UP IN BED WITH EVENING MEAL SATS LOW 90'S CONTINUES ON 2 L02. PT DENIES NEEDS CALL LIGHT IN REACH
--- NOTE | 2024-08-17 19:46 | NUR ---
REPORT RECEIVED FROM DAY SHIFT RN. PT LYING IN BED ALERT AND ORIENTED. DENIES NEEDS. WHITE BOARD UPDATED. CALL LIGHT IN REACH.
--- NOTE | 2024-08-17 21:31 | NUR ---
EVENING ASSESSMENT COMPLETE. SCHEDULED MEDS ADMIN PER EMAR. PT DENIES PAIN OR NAUSEA. DENIES SOB. 2L/NC IN PLACE. SpO2 92%. RESPIRATIONS EVEN. LUNGS COARSE IN BASES. NONPRODUCTIVE COUGH NOTED. PRN FOR COUGH ADMIN PER REQUEST. PT DENIES QUESTIONS OR CONCERNS. CALL LIGHT IN REACH.
--- NOTE | 2024-08-17 23:00 | NUR ---
PT RESTING IN BED WITH EYES CLOSED. RESPIRATIONS EVEN. SpO2 92% ON 2L/NC.
[2024-08-18] VITALS (9 sets, daily range): BP systolic 144–158; BP diastolic 53–61
--- NOTE | 2024-08-18 00:35 | NUR ---
PT IN BED RESTING WITH EYES CLOSED. RESPIRATIONS EVEN. CALL LIGHT IN REACH.
--- NOTE | 2024-08-18 02:19 | NUR ---
PT IN BED RESTING WITH EYES CLOSED. RESPIRATIONS EVEN. CALL LIGHT IN REACH.
--- NOTE | 2024-08-18 04:13 | NUR ---
PT AWAKE IN BED. SpO2 92% ON 2L/NC. ASSESSMENT COMPLETE. FRESH WATER PROVIDED. NO FURTHER NEEDS. CALL LIGHT IN REACH.
[2024-08-18 06:21] LABS: HEMATOCRIT 34.9 % (35.0-50.0); HEMOGLOBIN 12.3 g/dL (12.0-18.0); MCH 32.1 (27-36); MCHC 35.2 g/dl (30-36); MCV 91.2 fl (81-99); PLATELET COUNT 241 K/uL (140-440); RBC 3.83 M/ul (4.3-5.7); RDW 12.3 (10.5-15.0)
--- NOTE | 2024-08-18 06:21 | NUR ---
PT RESTING WITH EYES CLOSED IN BED. RESPIRATIONS EVEN. CALL LIGHT IN REACH.
[2024-08-18 06:28] LABS: BUN/CREATININE RATIO 17.56 (6.0-28.6); CALCIUM 8.2 mg/dL (8.5-10.1); CREATININE, SERUM 0.74 mg/dL (0.55-1.02)
[2024-08-18 06:42] LABS: LYMPHOCYTES, MANUAL DIFF 7; MONOCYTES, MANUAL DIFF 4; NEUTROPHILS, MANUAL DIFF 89
--- NOTE | 2024-08-18 07:19 | NUR ---
REPORT RECEIVED FROM PAUL KNOX. PATIENT SITTING UP IN BED ON HER PHONE. PATIENT DENIES ANY NEEDS AT THIS TIME. CALL LIGHT AND PERSONAL BELONGINGS WITHIN REACH. CPOX AT BEDSIDE.
[2024-08-18] MEDS ORDERED: ALBUTEROL/IPRATROPIUM 3 ML NEB INH SCH ×2 (08:00→20:00)
[2024-08-18] MEDS ORDERED: CEFTRIAXONE SODIUM 1 GM VIAL IV ONE (08:18)
--- NOTE | 2024-08-18 08:19 | NUR ---
NOTIFIED OF GIANT PLATELETS PRESENT ON THE LABS. STATED TO CONTINUE TO GIVE THE LOVENOX. NO NEW ORDERS AT THIS TIME.
--- NOTE | 2024-08-18 08:45 | NUR ---
PATIENT SITTING UP IN BED ON HER PHONE. PATIENT MEDICATED PER EMAR. FRESH ICE WATER PROVIDED. PATIENT DENIES ANY FURTHER NEEDS AT THIS TIME. CALL LIGHT AND PERSONAL BELONGINGS WITHIN REACH.
--- NOTE | 2024-08-18 08:46 | NUR ---
RT in room with patient. Breakfast tray brought in.
--- NOTE | 2024-08-18 09:22 | NUR ---
PATIENT ASSESSMENT COMPLETE. PATIENT IS ALERT AND ORIENTED AND INDEPENDENT IN THE ROOM. CARDIAC WITH NORMAL S1-S2. PATIENT HAS NO EDEMA, PULSES ARE STRONG IN UPPER AND LOWER EXTREMETIES. CAP REFILL IS <3 SECONDS. PATIENT IS ON 1L NC AT 93%. PATIENT LUNG SOUNDS ARE WITH CRACKLES THROUGHOUT. CPOX AT BEDSIDE. PATIENT IS ON A REGULAR DIET, WITH IMPROVED APPETITE. BOWEL TONES ARE ACTIVE THROUGHOUT. LAST BM WAS 08/17/24. PATIENT WITH NO COMPLAINTS OF PAIN AT THIS TIME. SKIN IS INTACT. PATIENT REPORT CHRONIC NUMBNESS AND TINGLING IN RIGHT FOOT. PATIENT IV FLUSHED WITH 10ML OF NS, DRESSING INTACT. PATIENT DENIES ANY FURTHER NEEDS AT THIS TIME. CALL LIGHT AND PERSONAL BELONGINGS WITHIN REACH.
--- NOTE | 2024-08-18 10:29 | NUR ---
PATIENT IS COUGHING AT THIS TIME. PATIENT REQUESTING SOMETHING FOR HER COUGH. CPOX AT BEDSIDE. PATIENT STATED NO FURTHER NEEDS AT THIS TIME. CALL LIGHT AND PERSONAL BELONGINGS ARE WITHIN REACH.
--- NOTE | 2024-08-18 10:48 | NUR ---
PATIENT ALERT IN BED. DISCUSSED POTENTIAL NEED FOR OXYGEN. PATIENT ALSO STATES SHE WILL NEED NEBULIZER. WILL GET SET UP PRIOR TO DC IF NEEDED. PATIENT STATES SHE HAS NO OTHER CM NEEDS AT THIS TIME.
--- NOTE | 2024-08-18 11:24 | NUR ---
PATIENT IS LYING IN BED WITH HOB ELEVATED. PATIENT WITH EYES CLOSED AND RESPIRATIONS ARE EVEN AND UNLABORED. NC AND CPOX IN PLACE. CALL LIGHT AND PERSONAL BELONGINGS ARE WITHIN REACH.
[2024-08-18] MEDS ORDERED: methylPREDNISolone SOD SUCC 125 MG/2 ML VIAL IV ONE (11:45)
--- NOTE | 2024-08-18 12:24 | NUR ---
PATIENT MEDICATED PER EMAR. PATIENT SITTING UP IN BED EATING LUNCH. REPORTS GOOD APPETITIE AND EATING WELL. FRESH ICE WATER AND DIET CRANBERRY JUICE PROVIDED. PATIENT DENIES AND FURTHER NEEDS AT THIS TIME. CALL LIGHT AND PERSONAL BELONGINGS WITHIN REACH.
--- NOTE | 2024-08-18 13:18 | NUR ---
PATIENT UP AND READY TO GO FOR WALK WITH HER . PATIENT DENIES ANY NEEDS AT THIS TIME. CALL LIGHT AND PERSONAL BELONGINGS WITHIN REACH.
--- NOTE | 2024-08-18 14:22 | NUR ---
PATIENT RESTING IN BED WITH EYES CLOSED. EVEN AND UNLABORED RESPIRATIONS NOTED. PATIENT AT 89% ON ROOM AIR. PATIENT TURNED BACK TO 1L NC. PATIENT WOKE WHEN THIS RN CHANGED OXYGEN. PATIENT DENIES ANY NEEDS AT THIS TIME. CALL LIGHT AND PERSONAL BELONGINGS WITHIN REACH.
--- NOTE | 2024-08-18 14:45 | NUR ---
PATIENT FOCUS ASSESSMENT COMPLETED. PATIENT IS 91% ON 1L NC AT THIS TIME. LUNG SOUNDS ARE WITH CRACKLES THROUGHOUT. IV FLUSHED WITH 10ML OF NS, DRESSING INTACT. PATIENT IS WITHOUT COMPLAINTS OF PAIN AND DENIES ANY FURTHER NEEDS AT THIS TIME. CALL LIGHT AND PERSONAL BELONGINGS WITHIN REACH.
--- NOTE | 2024-08-18 15:25 | NUR ---
PATIENT RESTING IN BED WITH EYES CLOSED. EVEN AND UNLABORED RESPIRATIONS NOTED. CALL LIGHT AND PERSONAL BELONGINGS WITHIN REACH.
--- NOTE | 2024-08-18 16:15 | NUR ---
PATIENT RESTING IN BED. FRESH ICE WATER AND PUDDING PROVIDED. PATIENT DENIES ANY FURTHER NEEDS AT THIS TIME. CALL LIGHT AND PERSONAL BELONGINGS WITHIN REACH. CPOX AT BEDSIDE.
[2024-08-18] MEDS ORDERED: ALBUTEROL SULFATE 0.5% 2.5 MG/0.5 ML VIAL ONE (16:51)
[2024-08-18] MEDS ORDERED: ALBUTEROL SULFATE 0.042% 1.25 MG/3 ML VIAL INH ONE (17:15)
--- NOTE | 2024-08-18 17:18 | NUR ---
RT IN WITH PATIENT AT THIS TIME. PATIENT DENIES ANY NEEDS. CALL LIGHT AND PERSONAL BELONGINGS WITHIN REACH.
--- NOTE | 2024-08-18 17:30 | NUR ---
PATIENT LET THIS RN KNOW OF SOME FOOD ALLERGIES. DR MARTINEZ NOTIFIED. DIETERY ORDER MODIFIED TO REFLECT ALLERGIES. MD WITH NO FURTHER ORDERS AT THIS TIME.
--- NOTE | 2024-08-18 18:10 | NUR ---
PATIENT RESTING IN BED. PATIENT DENIES ANY FURTHER NEEDS AT THIS TIME. CALL LIGHT AND PERSONAL BELONGINGS WITHIN REACH.
--- NOTE | 2024-08-18 19:56 | NUR ---
RECEIVED REPORT FROM AKASH PANTOJA RN. PT IN BED, LIGHTS ON, WATCHING TV. AT THIS TIME, WHITE BOARD UPDATED. PT WITH RT RECEIVING BREATHING TREATMENT, BELIEVES THAT THE PUDDING SHE ATE PREVIOUS TO DINNER MAY HAVE CAUSED A ALLERGIC REACTION, SHE FEELS, BASED ON THE FACT SHE HAD MILK ALLERGIES A CHILD. PT WITH NO OTHE RNEEDS. CPOX READING 91% HR OF 84
[2024-08-18] MEDS ORDERED: ALBUTEROL SULFATE 0.5% 2.5 MG/0.5 ML VIAL INH SCH (20:00)
[2024-08-18] MEDS ORDERED: methylPREDNISolone SOD SUCC 125 MG/2 ML VIAL IV SCH (21:00)
--- NOTE | 2024-08-18 21:10 | NUR ---
ASSESSMENT COMPLETED. A/O, AT HER SIDE. DENIES N/T RIGHT FOOT, STATES IT HAS IMPROVED SINCE ADMISSION. INDENPENDENT IN ROOM. O2 2LNC, SATS AT 90. REFUSED MIRLAX, SENNA. MOTRIN PER IN REQUEST FOR LOW BACK DISCOMFORT. ALL PERSONAL SUPPLIES WITHIN REACH.
--- NOTE | 2024-08-18 23:50 | NUR ---
ROUNDED ON PT. PT ON BACK, EYES CLOSED, RESP EVEN AND ULABORED. CPOX READING 89%, 2LNC IN PLACE.
[2024-08-19] VITALS (7 sets, daily range): BP systolic 139–169; BP diastolic 46–72
--- NOTE | 2024-08-19 01:57 | NUR ---
ROUNDED ON PT. PT WITH EYES CLOSED, RESP EVEN AND UNLABORED. CPOX READING 90/67.
--- NOTE | 2024-08-19 03:20 | NUR ---
ROUNDED ON PT. RESP EVEN AND UNLABORED
--- NOTE | 2024-08-19 04:03 | NUR ---
CPOX ALARMING, PT SITTING UP IN BED, NONPRODUCTIVE COUGH. STATES IT WAS GOING OFF CAUSE THE NUMBER WAS LOW. PT STATED, IN THE 80'S, "MAYBE 88". CURRENTLY SATS BETWEEN 89-91. O2 IN PLACE, 3L. FRESH ICE WATER GIVEN, URINE HAT EMPTIED. NO OTHER NEEDS.
--- NOTE | 2024-08-19 05:48 | NUR ---
CURING OVEN ATTENDANT OBTAINED VITALS AND I&O. PT STATES NO NEEDS AT THIS TIME. CALL LIGHT WITHIN REACH.
--- NOTE | 2024-08-19 06:01 | NUR ---
VS COMPLETED, LAYING ON RIGHT SIDE. LUNG SOUNDS, CL DIM POLLO, LLL; RIGHT COARSE. DEEP BREATHS INDUCED A DRY NONPRODUCTIVE COUGH. IV WNL. PT INDEPENDENT, VOID QS THROUGHOUT SHIFT.
[2024-08-19 06:30] LABS: HEMATOCRIT 34.5 % (35.0-50.0); HEMOGLOBIN 12.2 g/dL (12.0-18.0); MCH 32.2 (27-36); MCHC 35.2 g/dl (30-36); MCV 91.4 fl (81-99); PLATELET COUNT 307 K/uL (140-440); RBC 3.78 M/ul (4.3-5.7); RDW 12.1 (10.5-15.0)
[2024-08-19 06:40] LABS: ALBUMIN 2.9 g/dL (3.4-5.0); ALBUMIN/GLOBULIN RATIO 0.88 (1.1-2.4); ANION GAP 8.9 (7-21); BILIRUBIN, TOTAL 0.9 mg/dL (0.2-1.0); BUN/CREATININE RATIO 18.91 (6.0-28.6); CALCIUM 8.5 mg/dL (8.5-10.1); CREATININE, SERUM 0.74 mg/dL (0.55-1.02); MAGNESIUM 2.1 mg/dL (1.8-2.4); POTASSIUM 3.9 mmol/L (3.5-5.1); PROTEIN, TOTAL 6.2 g/dL (6.4-8.2)
--- NOTE | 2024-08-19 07:05 | NUR ---
REPORT RECEIVED FROM DYEING MACHINE TENDER PAUL NICK. PATIENT IS LYING IN BED WITH HOB ELEVATED AND IS ON HER PHONE. CPOX AT BEDSIDE. FRESH CUP OF ICE WATER PROVIDED PER PATIENT REQUEST. PATIENT STATED NO FURTHER NEEDS AT THIS TIME. CALL LIGHT AND PERSONAL BELONGINGS ARE WITHIN REACH.
[2024-08-19 07:22] LABS: BANDS, MANUAL DIFF 1; LYMPHOCYTES, MANUAL DIFF 7; MONOCYTES, MANUAL DIFF 5; NEUTROPHILS, MANUAL DIFF 87
[2024-08-19] MEDS ORDERED: CEFTRIAXONE SODIUM 1 GM VIAL IV ONE (07:37)
--- NOTE | 2024-08-19 08:25 | NUR ---
IV ANTIBIOTIC COMPLETE. IV SITE FLUSHED WITH 10 ML NORMAL SALINE AND IS SALINE LOCKED. IV DRESSING IS CLEAN, DRY, AND INTACT. IV PUMP CLEARED OF INTAKE FLUIDS. PATIENT STATED NO FURTHER NEEDS AT THIS TIME. CALL LIGHT AND PERSONAL BELONGINGS ARE WITHIN REACH. CPOX AT BEDSIDE.
--- NOTE | 2024-08-19 09:06 | NUR ---
PATIENT SITTING ON EDGE OF BED AT THIS TIME. ARTISAN PLASTERER OFFERED A WASH CLOTH TO WASH FACE, GOT FRESH WATER. CALL LIGHT WIHT IN REACH AND NOTHING ELSE NEEDED AT THIS TIME.
--- NOTE | 2024-08-19 09:16 | NUR ---
PATIENT IS AMBULATING IN THE [place] WITH RT AT THIS TIME.
--- NOTE | 2024-08-19 09:44 | NUR ---
PATIENT IS IN BED AT THIS TIME RESTING AFTER PT. COREMAKER APPRENTICE CHARTED VITALS AND I&O'S, CALL LIGHT WITH IN REACH AND NOTHING ELSE NEEDED AT THIS TIME.
--- NOTE | 2024-08-19 09:45 | NUR ---
PATIENT ASSESSMENT COMPLETED. PATIENT IS ALERT AND ORIENTED. PATIENT IS INDEPENDENT IN THE ROOM. CARDIAC IS WITH S1-S2. RADIAL AND PEDAL PULSES ARE STRONG BILATERALLY IN UPPER AND LOWER EXTREMETIES. PATIENT IS WITH NO EDEMA, CAP REFILL <3 SECONDS. PATIENT IS ON 93% ON 1LPM NC. LUNG SOUNDS ARE CLEAR BILATERALLY IN UPPER LOBES AND WITH CRACKLES IN THE BASES. PATIENT HAS CHRONIC NUMBNESS/TINGLING IN RIGHT FOOT, BUT DENIES ANY NUMBNESS/TINGLING IN OTHER EXTREMETIES. PATIENT IS ON REGULAR DIET WITH ACTIVE BOWEL TONES IN ALL 4 QUADRANTS. PATIENT DENIES ANY URINARY SYMPTOMS. PATIENT REPORTS PAIN 4/10 IN THE ABDOMEN DUE TO COUGHING. PRN TYLENOL ADMINISTERED FOR PAIN. SKIN IS INTACT. IV FLUSHED WITH 10ML OF NS, DRESSING INTACT. PATIENT DENIES ANY FURTHER NEEDS AT THIS TIME. CALL LIGHT AND PERSONAL BELONGINGS WITHIN REACH.
--- NOTE | 2024-08-19 09:54 | NUR ---
POTENTIAL DC TO HOME TODAY OR TOMORROW WITH NEBULIZERS AND HOME OXYGEN. FACESHEET, NOTES, ORDERS, H&P, PROG NOTES FAXED TO [facility]. PATIENT STATES IF SHE IS NOT DISCHARGED TODAY, [facility] CAN STILL SET UP OXYGEN WITH SPOUSE AT HOME. DENIES OTHER CM NEEDS AT THIS TIME.
--- NOTE | 2024-08-19 10:32 | NUR ---
PT NOT AVAILABLE FOR VISIT. PROVIDED PRAYER.
--- NOTE | 2024-08-19 10:39 | NUR ---
PATIENT SITTING AT EDGE OF BED. REPORTS SOME RELIEF FROM PAIN AFTER TYLENOL ADMINISTRATION. PATIENT DENIES ANY FURTHER NEEDS AT THIS TIME. CALL LIGHT AND PERSONAL BELONGINGS WITHIN REACH.
--- NOTE | 2024-08-19 11:10 | NUR ---
PATIENT IN BATHROOM AT THIS TIME GETTING READY FOR SHOWER. PULL CORD WITHIN REACH.
--- NOTE | 2024-08-19 12:34 | NUR ---
PATIENT SITTING UP IN BED EATING LUNCH. FRESH ICE WATER PROVIDED. PATIENT DENIES ANY FURTHER NEEDS AT THIS TIME. CALL LIGHT AND PERSONAL BELONGINGS WITHIN REACH.
--- NOTE | 2024-08-19 13:15 | NUR ---
PATIENT SITTING AT EDGE OF BED. PATIENT AT 93% ON 1L NC. CPOX AT BEDSIDE. PATIENT DENIES ANY FURTHER NEEDS AT THIS TIME. CALL LIGHT AND PERSONAL BELONINGS WITHIN REACH.
[2024-08-19] MEDS ORDERED: IPRAT-ALBUT 0.5-3 ML INH (13:48)
[2024-08-19] MEDS ORDERED: LEVOFLOXACIN750 MG PO (13:48)
[2024-08-19] MEDS ORDERED: MUCINEX600 MG PO (13:49)
[2024-08-19] MEDS ORDERED: PREDNISONE20 MG PO (13:49)
[2024-08-19] MEDS ORDERED: BENZONATATE100 MG PO (13:49)
--- NOTE | 2024-08-19 13:55 | NUR ---
PATIENT IS IN BED AT THIS TIME, CAFE OR RESTAURANT MANAGER CHARTED VITALS AND I&O'S, CALL LIGHT WITH IN REACH AND NOTHING ELSE NEEDED AT THIS TIME.
--- NOTE | 2024-08-19 14:11 | NUR ---
PATIENT IS LYING IN BED WITH EYES CLOSED AND TALKING ON THE PHONE. RESPIRATIONS ARE EVEN AND UNLABORED. PATIENT WITH A VISITOR SITTING ON THE COUCH. CPOX AT BEDSIDE. CALL LIGHT AND PERSONAL BELONGINGS ARE WITHIN REACH.
== END 2024-08-19 15:53 | disposition home or self-care (01) | DRG 871 ==
LOC: ED 05:49 → CCU 10:01 → MS 18:05
PROVIDERS: Family Medicine; Internal Medicine; ADMIT Student in an Organized Health Care Education/Training Program; ATTEND Student in an Organized Health Care Education/Training Program
DX: A41.89 Other specified sepsis (principal); J10.00 Influenza due to other identified influenza virus with unspecified type of pneumonia; J96.01 Acute respiratory failure with hypoxia; J45.901 Unspecified asthma with (acute) exacerbation; I10 Essential (primary) hypertension; F41.9 Anxiety disorder, unspecified; E87.6 Hypokalemia; M79.7 Fibromyalgia; Z99.81 Dependence on supplemental oxygen; E89.0 Postprocedural hypothyroidism; Z90.89 Acquired absence of other organs; Z98.890 Other specified postprocedural states; Z79.890 Hormone replacement therapy; Z79.51 Long term (current) use of inhaled steroids; Z79.899 Other long term (current) drug therapy
CPT/HCPCS: 36415; 71045; 80048; 80053; 81001; 83605; 83735; 85025; 85610; 85730; 87040; 87077; 87186; 94640; 94668; 94761; 94762; 94799; 96374; 96375; 99285-25; A9270; A9270-GY; J0456; J0696; J1650; J2919; J7060; J7121